=== PATIENT | male | born 1995 | race African-American/Black ===

== ENCOUNTER 2016-12-08 12:47 | Emergency (ER) | payer SELFPAY ==
[2016-12-08 15:18] LABS: URINE SOURCE CLEAN CATCH
[2016-12-08 15:26] LABS: URINE APPEARANCE CLOUDY; URINE BILIRUBIN NEG (NEG); URINE BLOOD 3+ (NEG); URINE COLOR YELLOW; URINE GLUCOSE NEG (NEG); URINE KETONE NEG (NEG); URINE LEUKOCYTE ESTERASE 3+ (NEG); URINE NITRATE NEG (NEG); URINE PROTEIN NEG (NEG); URINE SPECIFIC GRAVITY 1.015 (1.003-1.035)
[2016-12-08 15:29] LABS: CULTURE INDICATED? YES; URBCS1 AUWI 100-200 /[HPF] (0-2); URINE SQUAMOUS EPITHELIAL CELL NONE SEEN /[HPF]; UWBCS1 AUWI INNUM (0-5)
[2016-12-08 15:54] LABS: URINE BACTERIA AUWI 1+ (NEGATIVE)
[2016-12-08 15:55] LABS: URINE TRICHOMONAS NEGATIVE
[2016-12-12 17:23] LABS: CHLAMYDIA TRACH Not Detected (Not Detected); N GONOR Detected (Not Detected)
== END 2016-12-08 15:55 | disposition home or self-care (01) ==
LOC: CED 12:47 → CFTX 12:47 → CED 14:55 → CFTX 14:55
PROVIDERS: Nurse Practitioner
DX: R36.9 Urethral discharge, unspecified (principal)
CPT/HCPCS: 81003; 87086; 87491; 87591; 99282